=== PATIENT | male | born 1950 | race African-American/Black ===

== ENCOUNTER 2018-05-10 19:17 | Inpatient (IN) | payer MEDICARE ==
[2018-05-10 19:41] LABS: #Basophils 0.1 thou/uL (0.0-0.2); #Eosinphils 0.5 thou/uL (0.0-0.7); #Lymphocytes 1.9 thou/uL (1.20-3.40); #Monocytes 0.9 thou/uL (0.11-0.59); %Basophils 0.6 % (0.0-1.0); %Eosinophils 4.9 % (0.0-10.0); %Lymphocytes 20.2 % (21.0-51.0); %Monocytes 9.5 % (0.0-10.0); %Neutrophils 64.7 % (42.0-75.0); Hemoglobin 13.2 g/dL (14.0-18.0); Mean Corpuscular HGB CONC 30.7 g/dL (32.0-36.0); Mean Corpuscular Hemoglobin 27.2 pg (27.0-31.0); Mean Corpuscular Volume 88.7 fL (78.0-98.0); Mean Platelet Volume 7.3 fL (7.4-10.4); Platelet Count 196 thou/uL (130-400); RBC Distribution Width 13.1 % (11.5-14.5); Red Blood Cell (RBC) Count 4.83 mill/uL (4.70-6.10); White Blood Cell (WBC) Count 9.2 thou/uL (4.8-10.8)
--- NOTE | 2018-05-10 20:02 | RAD ---
AP VIEW CHEST: 05/10/18 HISTORY: Hypertension. AP view chest obtained on 05/10/18. COMPARISON: Comparison made to previous exam from 02/08/15. AP view chest demonstrates pulmonary vascular congestion. Mild cardiomegaly seen. No evidence of effu sions seen. No evidence of definite pulmonary edema seen. No evidence of hemo or pneumothorax seen. IMPRESSION: Pulmonary vascular congestion. POS: [facility]
[2018-05-10 20:03] LABS: ALT (SGPT) 31 U/L (8-55); AST (SGOT) 33 U/L (5-34); Albumin 3.9 g/dL (3.4-4.8); Alkaline Phosphatase 143 U/L (40-150); Anion Gap 11 mmol/L (10-20); BUN (Urea Nitrogen) 36 mg/dL (8.4-25.7); Bilirubin, Total 0.4 mg/dL (0.2-1.2); Calc. Creatinine Clearance 0 mL/min (70-130); Carbon Dioxide 31 mmol/L (23-31); Chloride 105 mmol/L (98-107); Estimated GFR-MDRD 34; Globulin 3.7 g/dL (2.4-3.5); Glucose 69 mg/dL (80-115); Protein, Total 7.6 g/dL (5.8-8.1); Sodium 143 mmol/L (136-145)
[2018-05-10 20:06] LABS: Calcium 13.8 mg/dL (7.8-10.44)
[2018-05-10] MEDS ORDERED: cloNIDine 0.1 MG TAB ONE (21:23)
[2018-05-10 21:52] LABS: CK (CPK) 125 U/L (30-200); Lipase 28 U/L (8-78)
[2018-05-10 23:55] LABS: Bilirubin Negative (Negative); Blood, Urine Negative (Negative); Clarity CLOUDY (Clear); Glucose, Urine (Dipstick) Negative (Negative); Leukocyte Trace (Negative); Nitrite Negative (Negative); Protein, Urine (Dipstick) Negative (Neg-Trace); Urobilinogen 0.2 mg/dL (0.2-1.0)
[2018-05-10 23:56] LABS: Bacteria/HPF None Seen HPF (None Seen); Hyaline Casts/LPF 0-3 HYALINE CAST LPF (0-3 Hyaline); RBC/HPF 0-3 HPF (0-3); Squamous Epithelial 0-3 HPF (0-3)
[2018-05-11] MEDS ORDERED: Ondansetron ODT 4 MG TAB PO PRN (02:54)
[2018-05-11] MEDS ORDERED: Acetaminophen 650 MG Suppository PR PRN (02:54)
[2018-05-11] MEDS ORDERED: Ondansetron PF 4 MG/2 ML Vial IVP PRN (02:54)
[2018-05-11] MEDS ORDERED: Acetaminophen 325 MG TAB PO PRN (02:54)
[2018-05-11] MEDS ORDERED: Acetaminophen 325 MG TAB ONE ×2 (03:09→03:17)
[2018-05-11] MEDS ORDERED: Sodium Chloride 0.9% 1,000 ML IV SCH (06:52)
[2018-05-11 07:10] VITALS: BMI 31.4
[2018-05-11] MEDS ORDERED: Senokot S 8.6-50 MG TAB PO PRN (07:14)
[2018-05-11] MEDS ORDERED: Loperamide HCl 2 MG CAP PO PRN (07:14)
[2018-05-11] MEDS ORDERED: Zolpidem Tartrate 5 MG TAB PO PRN (07:14)
[2018-05-11] MEDS ORDERED: Eucerin (Mineral Oil/Petrolatum,White) 30 gm Jar TOP PRN (07:14)
[2018-05-11] MEDS ORDERED: Diabetic Tussin 200 MG/10 ML UDCUP PO PRN (07:14)
[2018-05-11] MEDS ORDERED: Bisacodyl 5 MG TAB PO PRN (07:14)
[2018-05-11] MEDS ORDERED: Artificial Tears 18 DROP/0.9 ML EA EYE PRN (07:14)
[2018-05-11] MEDS ORDERED: Cepastat Lozenges 1 LOZ PO PRN (07:14)
[2018-05-11] MEDS ORDERED: hydrALAZINE 20 MG/ML VIAL SLOW IVP PRN (07:14)
[2018-05-11] MEDS ORDERED: Loratadine 10 MG TAB PO PRN (07:14)
[2018-05-11] MEDS ORDERED: HYDROcodone/Acetaminophen 5/325 mg Tablet PO PRN (07:14)
[2018-05-11] MEDS ORDERED: Sodium Chloride 0.65% Nasal 44 ML BOT EA NARE PRN (07:14)
[2018-05-11] MEDS ORDERED: Bisacodyl 10 MG SUPP PR PRN (07:14)
[2018-05-11] MEDS ORDERED: Dextrose 50% Abboject 50 ML SYRINGE SLOW IVP PRN (07:17)
[2018-05-11] MEDS ORDERED: HumaLOG 300 UNITS/3 ML VIAL SC PRN ×2 (07:17)
[2018-05-11] MEDS ORDERED: Dextrose 5% in Water 1,000 ML IV PRN (07:17)
[2018-05-11] MEDS: Sodium Chloride 0.9% 1,000 ML IV SCH ×3 (07:35→23:22)
[2018-05-11 08:08] LABS: Anion Gap 10 mmol/L (10-20); BUN (Urea Nitrogen) 31 mg/dL (8.4-25.7); Calc. Creatinine Clearance 49 mL/min (70-130); Calcium 11.3 mg/dL (7.8-10.44); Carbon Dioxide 27 mmol/L (23-31); Chloride 108 mmol/L (98-107); Estimated GFR-MDRD 41; Glucose 81 mg/dL (80-115); Magnesium 2.2 mg/dL (1.6-2.6); Phosphorus 2.7 mg/dL (2.3-4.7); Potassium 3.7 mmol/L (3.5-5.1); Sodium 141 mmol/L (136-145)
[2018-05-11] MEDS ORDERED: Amlodipine 10 MG TAB PO SCH (10:00)
[2018-05-11] MEDS: Famotidine 20 MG TAB PO SCH (10:07)
[2018-05-11] MEDS: Furosemide 40 MG/4 ML VIAL SLOW IVP SCH (10:07)
[2018-05-11] MEDS: Heparin 5,000 UNITS/ML VIAL SC SCH ×3 (10:07→20:13)
--- NOTE | 2018-05-11 10:12 | HP ---
PRIMARY CARE PHYSICIAN: Dr. Romero at [facility]. REASON FOR ADMISSION: Acute kidney injury, severe hypercalcemia. HISTORY OF PRESENT ILLNESS: A 68-year-old male who has underlying history of diabetes, hypertension, and dyslipidemia, who was not feeling good at workplace, his blood pressure was checked, it was very high. As per patient, when he checked, blood pressure was 180 systolic. For last several days, the patient's blood pressure was remaining high. He was not having any headache or dizziness, but he was not feeling good. Lately, the patient was also having constipation. The patient reports that he has gastroesophageal reflux disease, and he was taking Rolaids as needed basis. He denies any anorexia, nausea, or vomiting, but his appetite reduced since of his . The patient denies any bone pain. He does have prostate problem, and he is taking prostate medication, but he denies any groin pain or urine symptoms. He denies any polyuria or polydipsia. He reports that he lost some weight since that of his because of his not eating properly. He denies any cough. He denies any chest pain. He denies any melena or hematochezia. REVIEW OF SYSTEMS: CONSTITUTIONAL: Negative for weight loss or gain, ability to conduct usual activities. SKIN: Negative for rash, itching. EYES: Negative for double vision, pain. ENT/MOUTH: Negative for nose bleeding, neck stiffness, pain, tenderness. CARDIOVASCULAR: Negative for palpitations, dyspnea on exertion, orthopnea. RESPIRATORY: Negative for shortness of breath, wheezing, cough, hemoptysis, fever or night sweats. GASTROINTESTINAL: Negative for poor appetite, abdominal pain, heartburn, nausea, vomiting, constipation, or diarrhea. GENITOURINARY: Negative for urgency, frequency, dysuria, nocturia. MUSCULOSKELETAL: Negative for pain, swelling. NEUROLOGIC/PSYCHIATRIC: Negative for anxiety, depression. ALLERGY/IMMUNOLOGIC: Negative for skin rash, bleeding tendency. Please see my HPI for pertinent positives and negatives. All other review of systems reviewed and negative except as mentioned in HPI. PAST MEDICAL HISTORY: Hypertension, diabetes type 2, dyslipidemia, gastroesophageal reflux disease, and history of nephrolithiasis. PAST SURGICAL HISTORY: History of nephrolithiasis and appendicectomy. PAST PSYCHIATRIC HISTORY: Reviewed and negative. SOCIAL HISTORY: The patient is . No history of tobacco, alcohol, or illicit drug abuse. He is working. FAMILY HISTORY: No family history of coronary artery disease, stroke, or cancer. ALLERGIES: CODEINE. CURRENT HOME MEDICATIONS: 1. Coreg 12.5 mg twice daily. 2. Metformin 500 mg p.o. b.i.d. 3. Zocor 10 mg p.o. at bedtime. EMERGENCY ROOM COURSE: The patient has received IV fluid 2 L, clonidine one tablet, and Tylenol 650 mg. PHYSICAL EXAMINATION: VITAL SIGNS: On arrival, blood pressure 193/94, pulse 78, respiratory rate 18, temperature 97.5, and saturation is 97% on room air. Weight 99.3 kg. GENERAL: The patient is currently alert, oriented, no obvious acute distress. HEENT: Head; normocephalic, atraumatic. Eyes; pupils round, reactive to light. Extraocular muscle intact. ENT, oropharynx within normal limits. Moist mucous membrane. No oral lesion. No pharyngeal erythema. No exudate. NECK: Supple. No JVD. No thyromegaly. No carotid bruit. No jugular venous distention. LUNGS: Clear to auscultation without any rhonchi or rales. CARDIAC: S1, S2 regular. No murmur. No gallop. No rub. ABDOMEN: Soft. Bowel sounds present. Nontender. Nondistended. No organomegaly. No mass. No suprapubic tenderness. BACK: Unremarkable. No CVA tenderness. EXTREMITIES: Upper extremities, passive movement of all joints is normal. Lower extremities, no edema. Good distal pulsation. SKIN: No skin rash. HEMATOLOGICAL SYSTEM: No lymphadenopathy. NEUROLOGIC: Nonfocal examination. SIGNIFICANT LABORATORY DATA: EKG showing RBBB. Chest x-ray showed pulmonary vascular congestion. CBC; WBC 9.2, hemoglobin 13.2, and platelets 196. BMP; sodium 143, potassium 4.0, chloride 105, carbon dioxide 31, BUN 36, creatinine 2.36, glucose 69, calcium 13.8, phosphorus 2.7, magnesium 2.2, AST 33, ALT 31, alkaline phosphatase 143, and albumin 3.9. BNP 25.6. Troponin negative. CK 125. Lipase 28. Vitamin D 25.6, PTH 7.6. Urinalysis, leukocyte esterase trace. ASSESSMENT AND PLAN: 1. Hypercalcemia. The patient's calcium level is 13.8. He has underlying constipation. He has previous history of nephrolithiasis. He does have anorexia, etiology uncertain, but the patient's PTH level is very low, so other etiology needs to be excluded. Vitamin D level is low as well, but with vitamin D deficiency, PTH should go higher level, but it is not expected appropriate response, so the patient was expected to have underlying other etiology with suppressor as PTHrP needs to be checked. PSA level will be checked. Magnesium and phosphorus level are normal. At this point, his hypercalcemia is not able to be explained. Given he has renal failure, we will check serum protein electrophoresis. He does not have any granulomatous disease on chest x-ray to explain his sarcoidosis. He does not have any clinical history supportive of any particular diagnosis. We will check TSH as well. We will treat with IV fluid and Lasix. We will monitor PTH and calcium. 2. Hypertension, uncontrolled. We will start Coreg 12.5 mg p.o. twice daily. We will add amlodipine 10 mg p.o. daily. 3. Diabetes, type 2. We will continue insulin as per sliding scale protocol. We will hold on metformin therapy. 4. Dyslipidemia. We will continue Lipitor 10 mg p.o. daily. 5. Acute kidney injury/chronic kidney failure. We will continue with IV fluid and monitor renal function. 6. Deep venous thrombosis prophylaxis. Heparin 5000 units subcu twice daily. 7. Gastrointestinal prophylaxis. Pepcid 20 mg p.o. daily. CODE STATUS: The patient is full code. The patient does not have any surrogate decision maker. DISPOSITION PLAN: Based on clinical course. Job ID: [id number]
[2018-05-11] MEDS ORDERED: Prevnar 13-Val Conj/PF 0.5 ML SYRINGE IM ONE ×2 (12:15→17:00)
[2018-05-11 16:14] LABS: Reference Lab Name LABCORP
[2018-05-11] MEDS: Carvedilol 6.25 MG TAB PO SCH (16:19)
[2018-05-11] MEDS ORDERED: Atorvastatin Calcium 10 MG TAB PO SCH (21:00)
[2018-05-11] MEDS ORDERED: traMADol HCl 50 MG TAB PO PRN (21:50)
[2018-05-12 06:06] LABS: #Eosinphils 0.4 thou/uL (0.0-0.7); #Lymphocytes 1.7 thou/uL (1.20-3.40); #Monocytes 0.9 thou/uL (0.11-0.59); #Neutrophils 3.8 thou/uL (1.40-6.50); %Basophils 0.5 % (0.0-1.0); %Eosinophils 5.9 % (0.0-10.0); %Lymphocytes 25.2 % (21.0-51.0); %Monocytes 13.6 % (0.0-10.0); %Neutrophils 54.7 % (42.0-75.0); Hemoglobin 11.3 g/dL (14.0-18.0); Mean Corpuscular HGB CONC 31.8 g/dL (32.0-36.0); Mean Corpuscular Hemoglobin 27.3 pg (27.0-31.0); Mean Corpuscular Volume 85.9 fL (78.0-98.0); Mean Platelet Volume 7.6 fL (7.4-10.4); Platelet Count 172 thou/uL (130-400); RBC Distribution Width 13.1 % (11.5-14.5); Red Blood Cell (RBC) Count 4.14 mill/uL (4.70-6.10); White Blood Cell (WBC) Count 6.9 thou/uL (4.8-10.8)
[2018-05-12 06:37] LABS: ALT (SGPT) 27 U/L (8-55); AST (SGOT) 28 U/L (5-34); Albumin 3.2 g/dL (3.4-4.8); Alkaline Phosphatase 114 U/L (40-150); Anion Gap 11 mmol/L (10-20); BUN (Urea Nitrogen) 30 mg/dL (8.4-25.7); Bilirubin, Total 0.3 mg/dL (0.2-1.2); Calc. Creatinine Clearance 51 mL/min (70-130); Calcium 10.4 mg/dL (7.8-10.44); Carbon Dioxide 27 mmol/L (23-31); Chloride 106 mmol/L (98-107); Estimated GFR-MDRD 43; Globulin 3.1 g/dL (2.4-3.5); Glucose 85 mg/dL (80-115); Potassium 3.6 mmol/L (3.5-5.1); Protein, Total 6.3 g/dL (5.8-8.1); Sodium 140 mmol/L (136-145)
[2018-05-12] MEDS ORDERED: Amlodipine 10 MG TAB PO SCH (09:00)
[2018-05-12 09:01] LABS: Free T4 (Free Thyroxine) 1.14 ng/dL (0.70-1.48)
[2018-05-12] MEDS: Carvedilol 6.25 MG TAB PO SCH (09:20)
[2018-05-12] MEDS: Famotidine 20 MG TAB PO SCH (09:21)
[2018-05-12] MEDS: Heparin 5,000 UNITS/ML VIAL SC SCH ×2 (09:22→14:33)
[2018-05-12] MEDS: Furosemide 40 MG/4 ML VIAL SLOW IVP SCH (09:22)
--- NOTE | 2018-05-12 09:50 | DIS ---
DATE OF ADMISSION: 05/10/2018 DATE OF DISCHARGE: 05/12/2018 PRIMARY CARE PHYSICIAN: Emile Neri. DISCHARGE DISPOSITION: Home. PRIMARY DISCHARGE DIAGNOSES: 1. Acute kidney failure on baseline chronic kidney disease stage 3. 2. Hypercalcemia. 3. Vitamin D deficiency. SECONDARY DISCHARGE DIAGNOSES: 1. Hypertension. 2. Gastroesophageal reflux disease. 3. Dyslipidemia. 4. Benign enlargement of prostate. 5. Obesity with BMI 30. PRIMARY PROCEDURE/OPERATION: None. RADIOLOGICAL INVESTIGATION: Chest x-ray normal. SIGNIFICANT LABORATORY DATA: WBC 6.9, hemoglobin 11.3, platelet 172. Sodium 140, potassium 3.6, chloride 106, BUN 30, creatinine 1.92, calcium 10.4. LFT normal. TSH 0.33. PTH 11.9, albumin 3.2. Urinalysis unremarkable. DISCHARGE MEDICATIONS: 1. Coreg 25 mg p.o. daily. 2. Vitamin B12 500 mcg p.o. daily. 3. Amaryl 2 mg p.o. daily. 4. Zocor 40 mg p.o. at bedtime. 5. Flomax 0.4 mg p.o. at bedtime. 6. Amlodipine 10 mg p.o. daily. 7. Vitamin D3 1000 units p.o. daily. 8. Lasix 40 mg p.o. daily. CONTRAINDICATION: None. CODE STATUS: Full code. INPATIENT CODER: None. ALLERGIES: CODEINE. DISCHARGE PLAN: Posthospital, the patient will make appointment with primary care physician in 1 week. The patient is advised to make appointment with patient care for hypercalcemia workup. The patient's primary care physician also advised to follow up on send-out result. HOSPITAL COURSE: A 68-year-old male, who was admitted by me. Please see my HPI for further details. The patient was having nausea, constipation, and GERD symptoms. He was also having dizziness and his blood pressure was out of control at home and that is why he decided to come to emergency room. He was incidentally found with acute on chronic kidney injury. We do not have any baseline creatinine on him, but on admission, creatinine was at 2.36. We gave him IV fluid and his creatinine improved to 1.92, which is his baseline. His calcium was elevated to 13.8 and on discharge, it is 10.4. We treated him with IV fluid and Lasix. We found that his PTH is very low and we also found that his vitamin D hydroxy level was also low. His TSH was low, but T4 and T3 were normal. At this point, we do not have any clear-cut diagnosis of his hypercalcemia. We sent PTHrP and serum protein electrophoresis. Clinically, he does not have any sarcoidosis. He does not have any multiple myeloma. He does not have any cancer obvious on clinical examination, but I advised him to make appointment with the patient care and follow up on the send-out test results. The patient is completely asymptomatic at this point and he wants to go home today. PHYSICAL EXAMINATION: VITAL SIGNS: Currently, temperature 98.9, pulse 75, respiratory rate 18, saturation 95% on room air, blood pressure 136/62, weight 209 pounds. GENERAL: The patient is currently alert, oriented, no acute distress. HEENT: Head; normocephalic, atraumatic. Eyes; pupils round, reactive to light. Extraocular muscle intact. ENT; oropharynx within normal limits. LUNGS: Clear without any rhonchi. CARDIAC: S1, S2 regular without any murmur. ABDOMEN: Soft and benign. EXTREMITIES: No edema. The patient is medically stable for discharge. Job ID: [id number]
[2018-05-12 12:54] VITALS: BP 151/79; TEMP 97.9
[2018-05-12] MEDS: Sodium Chloride 0.9% 1,000 ML IV SCH (14:33)
[2018-05-14 08:22] LABS: Albumin 3.2 g/dL (2.9-4.4); Alpha 1 0.2 g/dL (0.0-0.4); Alpha 2 0.6 g/dL (0.4-1.0); Beta 0.9 g/dL (0.7-1.3); Gamma 1.4 g/dL (0.4-1.8); Globulin, Total 3.1 g/dL (2.2-3.9); M-Spike Not Observed g/dL (Not Observed)
== END 2018-05-12 14:49 | disposition home or self-care (01) | DRG 641 ==
LOC: ERS 19:17 → ERHOLD 22:00 → 2NO 05-11 06:46
PROVIDERS: ADMIT Hospitalist; ATTEND Hospitalist
DX: E83.52 Hypercalcemia (principal); N17.9 Acute kidney failure, unspecified; E11.22 Type 2 diabetes mellitus with diabetic chronic kidney disease; N18.3 Chronic kidney disease, stage 3 (moderate); I12.9 Hypertensive chronic kidney disease with stage 1 through stage 4 chronic kidney disease, or unspecified chronic kidney disease; E78.5 Hyperlipidemia, unspecified; K59.00 Constipation, unspecified; K21.9 Gastro-esophageal reflux disease without esophagitis; N40.0 Benign prostatic hyperplasia without lower urinary tract symptoms; E66.9 Obesity, unspecified; Z68.30 Body mass index [BMI] 30.0-30.9, adult; Z88.5 Allergy status to narcotic agent; Z79.84 Long term (current) use of oral hypoglycemic drugs; Z79.899 Other long term (current) drug therapy
CPT/HCPCS: 36415; 36416; 71045; 80048; 80053; 81003; 81015; 82306; 82340; 82550; 83690; 83735; 83880; 83970; 84100; 84165; 84439; 84443; 84481; 84484; 85025; 90471; 90670; 93005; 94760; 96360; 96361; G0009; J1644; J1940

== ENCOUNTER 2024-10-03 08:09 | Outpatient (CLI) | payer MEDICARE ==
[2024-10-03 10:04] LABS: #Basophils 0.04 10x3/uL (0.0-0.2); #Eosinophils 0.18 10x3/uL (0.0-0.7); #Monocytes 0.69 10x3/uL (0.11-0.59); #Neutrophils 7.06 10x3/uL (1.40-6.50); %Basophils 0.4 % (0.0-1.0); %Eosinophils 1.9 % (0.0-10.0); %Lymphocytes 14.7 % (21.0-51.0); %Monocytes 7.2 % (0.0-10.0); %Neutrophils 73.5 % (42.0-75.0); Hematocrit 42.9 % (42.0-52.0); Hemoglobin 13.5 g/dL (14.0-18.0); Mean Corpuscular Hemoglobin 27.0 pg (27.0-31.0); Mean Corpuscular Volume 85.8 fL (78.0-98.0); Platelet Count 339 10x3/uL (130-400); Red Blood Cell (RBC) Count 5.00 mill/uL (4.70-6.10); White Blood Cell (WBC) Count 9.60 10x3/uL (4.8-10.8)
[2024-10-03 10:16] LABS: Anion Gap 12 mmol/L (10-20); BUN (Urea Nitrogen) 45 mg/dL (8.4-25.7); Calc. Creatinine Clearance 0 mL/min (70-130); Calcium 10.6 mg/dL (7.8-10.44); Carbon Dioxide 25 mmol/L (23-31); Chloride 107 mmol/L (98-107); Glucose 100 mg/dL (83-110); Potassium 4.1 mmol/L (3.5-5.1); Sodium 140 mmol/L (136-145)
[2024-10-03 10:18] LABS: Bacteria/HPF None Seen HPF (None Seen); Glucose, Urine (Dipstick) 200 mg/dL (Negative); INR-International Normal Ratio 1.1; Leukocyte 250 Leu/uL (Negative); Protein, Urine (Dipstick) 10 mg/dL (Neg-Trace); Prothrombin Time 14.0 sec (12.0-14.7); Specific Gravity, Urine 1.013 (1.002-1.036); WBC/HPF 21-50 HPF (0-3)
[2024-10-03 10:19] LABS: PTT 36.0 sec (22.9-36.1)
== END 2024-10-03 08:10 | disposition home or self-care (01) ==
LOC: LABBT 08:09
PROVIDERS: ATTEND Urology
DX: Z01.818 Encounter for other preprocedural examination (principal); N20.0 Calculus of kidney; N21.0 Calculus in bladder
CPT/HCPCS: 80048; 81001; 85025; 85610; 85730; 87086; 93005; 93010

== ENCOUNTER 2024-10-08 06:12 | Day surgery (SDC) | payer MEDICARE ==
[2024-10-03 08:46] VITALS: BMI 28.8
[2024-10-08] MEDS ORDERED: fentaNYL PF 100 MCG/2 ML SYRINGE ONE (07:46)
[2024-10-08] MEDS ORDERED: PROPOFOL 20 ML ONE (07:47)
[2024-10-08] MEDS ORDERED: Lidocaine 1% PF 5 ML VIAL ONE (07:47)
[2024-10-08] MEDS ORDERED: Rocuronium Bromide 10 MG/ML (10ML VIAL) ONE (07:47)
[2024-10-08] MEDS ORDERED: LevoFLOXacin D5W 500 mg (100 mL) BAG ONE (08:21)
[2024-10-08] MEDS ORDERED: Ondansetron PF 4 MG/2 ML Vial ONE (08:46)
[2024-10-08] MEDS ORDERED: Glycopyrrolate 0.2 MG/ML 5 ML SYRINGE ONE (09:09)
[2024-10-08] MEDS ORDERED: PHENYLEPHRINE-NS 100 MCG/ML 10 ML SYRINGE ONE (09:30)
[2024-10-08] MEDS ORDERED: SUGAMMADEX SODIUM 200 MG/2 ML VIAL ONE (10:14)
[2024-10-08] MEDS ORDERED: Oxybutynin 5 MG TAB ONE (10:37)
[2024-10-08] MEDS ORDERED: Acetaminophen 500 MG TAB ONE (13:51)
== END 2024-10-08 16:43 | disposition home or self-care (01) ==
LOC: SDC 06:12
PROVIDERS: ATTEND Urology
PROC: 0VT08ZZ Resection of Prostate, Via Natural or Artificial Opening Endoscopic (ICD-10-PCS; principal; 2024-10-08)
PROC: 0TCB8ZZ Extirpation of Matter from Bladder, Via Natural or Artificial Opening Endoscopic (ICD-10-PCS; 2024-10-08)
PROC: 0TC18ZZ Extirpation of Matter from Left Kidney, Via Natural or Artificial Opening Endoscopic (ICD-10-PCS; 2024-10-08)
PROC: 0T778DZ Dilation of Left Ureter with Intraluminal Device, Via Natural or Artificial Opening Endoscopic (ICD-10-PCS; 2024-10-08)
DX: N21.0 Calculus in bladder (principal); N20.0 Calculus of kidney; I12.9 Hypertensive chronic kidney disease with stage 1 through stage 4 chronic kidney disease, or unspecified chronic kidney disease; N18.9 Chronic kidney disease, unspecified; Z85.46 Personal history of malignant neoplasm of prostate; Z88.5 Allergy status to narcotic agent
CPT/HCPCS: 52317; 52356; 52601; 82365; C1758; C1769 ×2; C2617; J1100; J1956; J2405; J2704; J3010; 88300; 88305